=== PATIENT | female | born 1985 | race Caucasian/White ===

== ENCOUNTER 2022-12-25 01:16 | Emergency (ER) | payer MEDICAID, OTHER ==
[~2022-12-25] VITALS: Ht 167.6 cm; Wt 95.0 kg
[~2022-12-25 01:16] MED LIST: FERR-63 PO; PREN-88 PO; SYN175 PO
[2022-12-25 03:00] VITALS: BP 106/58
[2022-12-25] MEDS ORDERED: MECLIZINE 25MG TABLET PO ONE (03:00)
[2022-12-25] MEDS ORDERED: ASPIRIN 81MG TABLET PO ONE (03:00)
[2022-12-25 03:18] LABS: BASOPHILS % 0.3 % (0.0-2.0); EOSINOPHILS % 0.9 % (0.0-5.0); HEMATOCRIT. 40.3 % (36.0-48.0); HEMOGLOBIN. 13.7 g/dL (12.0-16.0); LYMPHOCYTES % 16.5 % (20.0-50.0); MEAN PLATELET VOLUME 8.8 fl (7.4-10.4); MONOCYTES % 4.7 % (2.0-8.0); NEUTROPHILS % 77.6 % (40.0-76.0); PLATELET 244 x1000/uL (130-400); RED BLOOD CELL COUNT 4.58 mill/uL (4.2-5.4); RED CELL DISTRIBUTION WIDTH 12.7 % (11.6-14.6)
[2022-12-25 03:26] LABS: CHLORIDE 106 mEq/L (98-107)
[2022-12-25 03:35] LABS: ETHANOL BLOOD < 10 mg/dL
[2022-12-25] MEDS ORDERED: MECL-159 MT (06:07)
[2022-12-25 08:47] LABS: *AMPHETAMINES SCREEN URINE NEGATIVE (NEGATIVE); *BARBITURATES SCREEN URINE NEGATIVE (NEGATIVE); *BENZODIAZEPINES SCREEN URINE NEGATIVE (NEGATIVE); *COCAINE SCREEN URINE NEGATIVE (NEGATIVE); CANNABINOID URINE SCREEN NEGATIVE (NEGATIVE); METHADONE URINE SCREEN NEGATIVE (NEGATIVE); OPIATES URINE SCREEN NEGATIVE (NEGATIVE); PHENCYCLIDINE URINE SCREEN NEGATIVE (NEGATIVE)
== END 2022-12-25 07:35 | disposition home or self-care (01) ==
LOC: ER 01:16
DX: R42 Dizziness and giddiness (principal); E78.00 Pure hypercholesterolemia, unspecified; Z86.39 Personal history of other endocrine, nutritional and metabolic disease
CPT/HCPCS: 36415; 70450; 71045; 80053; 80305; 80320; 81025; 82962; 83880; 84443; 84484; 85025; 93005; 99285; J8597; Z7610; G0480